=== PATIENT | male | born 1985 | race Caucasian/White ===

== ENCOUNTER 2022-03-12 12:57 | Emergency (ER) | payer BC ==
[~2022-03-12] VITALS: Ht 182.9 cm; Wt 99.8 kg
[2022-03-12] MEDS ORDERED: AMOX TR-K CLV1 EAC1 PO (15:59)
== END 2022-03-12 16:16 | disposition home or self-care (01) ==
LOC: ED 12:57
DX: S61.451A Open bite of right hand, initial encounter (principal); L03.113 Cellulitis of right upper limb; W55.01XA Bitten by cat, initial encounter
CPT/HCPCS: 99283